=== PATIENT | male | born 1945 | race Caucasian/White ===

== ENCOUNTER → 2019-01-11 | Outpatient (CLI) | payer OTHER ==
[2019-01-11 12:01] LABS: FREE T3 2.34 pg/mL (2.77-5.27); FREE T4 (FREE THYROXINE) 1.17 ng/dL (0.78-2.19)
[2019-01-11 12:15] LABS: THYROID STIMULATING HORMONE 3.8 uIU/mL (0.47-4.68)
== END ==
LOC: OD 09:33
PROVIDERS: ATTEND Surgery
DX: Z85.850 Personal history of malignant neoplasm of thyroid (principal)
CPT/HCPCS: 36415; 84439; 84443; 84481; 86800